=== PATIENT | male | born 1995 | race Caucasian/White ===

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

== ENCOUNTER 2017-02-07 16:40 | Emergency (ER) | payer MEDICAID ==
[2017-02-07 16:50] VITALS: O2SAT 99
--- NOTE | 2017-02-07 17:19 | C.PDOC ---
History Of Present Illness 21 yr old male presents to the ER s/p syncopal episode. Patient states he felt dizzy and passed out, when he woke up he was in a store. Patient reports he has been stressed out recently and has not eaten today. Patient reports of pain to his lower back, abdominal pain with some minimal tingling sensation to the feet. Also states hes having troubling taking a deeo breath due to the back pain. Denies vision changes, chest pain, nausea, vomiting or incontinence. Time Seen by Provider: 02/07/17 17:07 Chief Complaint (Nursing): Syncope History Per: Patient History/Exam Limitations: no limitations Onset/Duration Of Symptoms: Sudden Onset (TANNERY GUMMER) Past Medical History Reviewed: Historical Data, Nursing Documentation, Vital Signs Vital Signs: Last Vital Signs Temp 99 F 02/07/17 16:46 Pulse 73 02/07/17 17:19 Resp 16 02/07/17 17:19 BP 101/54 L 02/07/17 17:19 Pulse Ox 99 02/07/17 17:21 Family History: States: No Known Family Hx - Social History Hx Alcohol Use: No Hx Substance Use: No - Immunization History Hx Tetanus Toxoid Vaccination: No Hx Influenza Vaccination: No Hx Pneumococcal Vaccination: No Review Of Systems Except As Marked, All Systems Reviewed And Found Negative. Eyes: Negative for: Vision Change Cardiovascular: Negative for: Chest Pain Gastrointestinal: Positive for: Abdominal Pain. Negative for: Nausea, Vomiting Genitourinary: Negative for: Incontinence Musculoskeletal: Positive for: Back Pain Physical Exam - Physical Exam Appears: Non-toxic, No Acute Distress Skin: Warm, Dry, No Rash Head: Atraumatic, Normacephalic Oral Mucosa: Moist Chest: Symmetrical, No Tenderness Cardiovascular: Rhythm Regular, No Murmur Respiratory: Normal Breath Sounds, No Rales, No Rhonchi, No Stridor, No Wheezing Back: Normal Inspection, No CVA Tenderness Extremity: Normal ROM, No Tenderness, Capillary Refill (<2), No Swelling Neurological/Psych: Oriented x3, Normal Speech, Normal Motor ED Course And Treatment O2 Sat by Pulse Oximetry: 99 (RA) Pulse Ox Interpretation: Normal Disposition Counseled Patient/Family Regarding: Diagnosis, Need For Followup - Disposition Referrals: [facility] [Outside] Disposition: HOME/ ROUTINE Disposition Time: 18:44 Condition: STABLE Additional Instructions: Drink plenty fluids. Your EKG was normal. Follow up with your regular doctor. Prescriptions: Ibuprofen [Motrin] 600 mg PO TID #15 tab Instructions: Syncope (ED) Forms: [facility] (Qatari), General Discharge Instructions - POA Present On Arrival: None - Clinical Impression Clinical Impression: Near syncope - Scribe Statement The provider has reviewed the documentation as recorded by the Manjuibe Esperanza Koehler Provider Attestation: All medical record entries made by the Manjuibe were at my direction and personally dictated by me. I have reviewed the chart and agree that the record accurately reflects my personal performance of the history, physical exam, medical decision making, and the department course for this patient. I have also personally directed, reviewed, and agree with the discharge instructions and disposition.
[2017-02-07] MEDS ORDERED: Sodium Chloride 0.9% 1,000 ML IV ONE (17:32)
[2017-02-07] MEDS ORDERED: Sodium Chloride 0.9% 1,000 ML ONE (17:48)
[2017-02-07 18:02] VITALS: RESP 16
[2017-02-07 18:51] VITALS: BP 103/55; PULSE 76; TEMP 98.7
--- NOTE | 2017-02-08 08:09 | CARD ---
APPROVED REPORT EKG Measurement Heart [id number] [place] [id number] <Conclusion> Normal sinus rhythm Normal ECG
== END 2017-02-07 19:35 | disposition home or self-care (01) ==
LOC: C.ER 16:40
DX: R55 Syncope and collapse (principal)
CPT/HCPCS: 93005; 96361; 96374; 99285; J1885; J7040

== ENCOUNTER → 2017-02-13 18:15 | Emergency (ER) | payer MEDICAID ==
[~2017-02-13 18:15] MED LIST: Albuterol 0.083% Inhal Sol (2.5 mg/3 mL) UD ONE
== END | disposition left against medical advice (07) ==
LOC: C.ER 18:15
DX: M54.5 Low back pain (principal); Z02.9 Encounter for administrative examinations, unspecified

== ENCOUNTER 2017-03-30 18:55 | Emergency (ER) | payer MEDICAID ==
[2017-03-30 19:07] VITALS: BP 107/70; PULSE 57; RESP 20; TEMP 98.6; O2SAT 98
== END 2017-03-30 20:35 | disposition left against medical advice (07) ==
LOC: C.ER 18:55
DX: R10.31 Right lower quadrant pain (principal); Z02.9 Encounter for administrative examinations, unspecified

== ENCOUNTER 2017-04-04 10:30 | Emergency (ER) | payer MEDICAID ==
[2017-04-04 10:49] VITALS: BP 98/62; PULSE 68; RESP 18; TEMP 98.9; O2SAT 100
== END 2017-04-04 10:46 | disposition left against medical advice (07) ==
LOC: C.ER 10:30
DX: R10.31 Right lower quadrant pain (principal); Z02.9 Encounter for administrative examinations, unspecified

== ENCOUNTER 2017-04-17 00:27 | Emergency (ER) | payer MEDICAID ==
[2017-04-17 00:34] VITALS: BP 107/69; PULSE 71; RESP 20; TEMP 97.6; O2SAT 99
--- NOTE | 2017-04-17 00:47 | C.PDOC ---
History Of Present Illness Patient presents to the ED with complaints of shortness of breath and congestion. Patient feels there is a lot of dust at work. He is speaking in full sentences and tolerating PO. Patient Time Seen by Provider: 04/17/17 00:47 Chief Complaint (Nursing): Allergic Reaction Past Medical History Reviewed: Historical Data, Nursing Documentation, Vital Signs Vital Signs: Last Vital Signs Temp 97.6 F 04/17/17 00:32 Pulse 71 04/17/17 00:32 Resp 20 04/17/17 00:32 BP 107/69 04/17/17 00:32 Pulse Ox 99 04/17/17 03:40 Family History: States: No Known Family Hx - Social History Hx Alcohol Use: No Hx Substance Use: No - Immunization History Hx Tetanus Toxoid Vaccination: Yes Hx Influenza Vaccination: No Hx Pneumococcal Vaccination: No ED Course And Treatment O2 Sat by Pulse Oximetry: 99 Pulse Ox Interpretation: Normal Reevaluation Time: 03:38 Reassessment Condition: Improved Disposition Counseled Patient/Family Regarding: Studies Performed, Diagnosis, Need For Followup - Disposition Referrals: [facility] [Outside] [facility] [Outside] Disposition: HOME/ ROUTINE Disposition Time: 00:47 Condition: FAIR Prescriptions: Albuterol HFA [Ventolin HFA 90 mcg/actuation (8 g)] 2 puff IH [id number] #1 puff Prednisone [Deltasone] 20 mg PO DAILY #5 tablet Instructions: Reactive Airways Disease (DC) Forms: Work/School/Gym Excuse, [facility] (Lithuanian) - Clinical Impression Clinical Impression: Reactive airway disease - Scribe Statement The provider has reviewed the documentation as recorded by the Scribgabriel Adam All medical record entries made by the Scribe were at my direction and personally dictated by me. I have reviewed the chart and agree that the record accurately reflects my personal performance of the history, physical exam, medical decision making, and the department course for this patient. I have also personally directed, reviewed, and agree with the discharge instructions and disposition.
== END 2017-04-17 00:56 | disposition home or self-care (01) ==
LOC: C.ER 00:27
DX: J45.909 Unspecified asthma, uncomplicated (principal)

== ENCOUNTER 2017-05-23 12:08 | Emergency (ER) | payer MEDICAID ==
[2017-05-23 12:09] VITALS: BMI 24.1
[2017-05-23 12:14] VITALS: TEMP 98; O2SAT 100
[2017-05-23] MEDS ORDERED: Sodium Chloride 0.9% 1,000 ML IV ONE (12:34)
[2017-05-23] MEDS ORDERED: Sodium Chloride 0.9% 1,000 ML ONE (12:39)
[2017-05-23 13:21] LABS: BASO % 0.8 % (0.0-2.0); EOS # 0.2 K/uL (0.0-0.7); EOS % 3.9 % (0.0-4.0); HEMATOCRIT 45.6 % (35.0-51.0); LYMPH # 1.6 K/uL (1.0-4.3); LYMPH % 39.5 % (20.0-40.0); MEAN CELL VOLUME 78.8 fL (80.0-94.0); MEAN CORPUSCULAR HEMOGLOBIN 25.8 pg (27.0-31.0); MEAN CORPUSCULAR HGB CONC 32.8 g/dL (33.0-37.0); MONO # 0.3 K/uL (0.0-0.8); MONO % 7.7 % (0.0-10.0); NRBC % 0.2 % (0.0-2.0); RED CELL DISTRIBUTION WIDTH 13.4 % (11.5-14.5)
[2017-05-23 13:36] LABS: ALB/GLOB RATIO 1.5 (1.0-2.1); ALKALINE PHOSPHATASE 69 U/L (38-126); ALT/SGPT 136 U/L (21-72); AST/SGOT 51 U/L (17-59); BILIRUBIN,TOTAL 1.3 mg/dL (0.2-1.3); BLOOD UREA NITROGEN 15 mg/dL (9-20); CARBON DIOXIDE 25 mmol/L (22-30); CHLORIDE 100 mmol/L (98-107); GFR AFRICAN-AMERICAN > 60; GLUCOSE,RANDOM 80 mg/dL (75-110); POTASSIUM 3.8 mmol/L (3.6-5.2); SODIUM 136 mmol/L (132-148); TOTAL PROTEIN 7.8 g/dL (6.3-8.3)
[2017-05-23 13:46] LABS: RBC URINE < 1 /hpf (0-3); URINE BILIRUBIN NEGATIVE (NEGATIVE); URINE BLOOD NEGATIVE (NEGATIVE); URINE COLOR Yellow (YELLOW); URINE GLUCOSE (UA) NORMAL (Normal); URINE KETONE TRACE mg/dL (NEGATIVE); URINE LEUKOCYTE ESTERASE NEG Leu/uL (Negative); URINE PROTEIN NEGATIVE (NEGATIVE); URINE UROBILINOGEN NORMAL mg/dL (0.2-1.0); WBC URINE 1 /hpf (0-5)
--- NOTE | 2017-05-23 13:49 | C.PDOC ---
History Of Present Illness 22 y/o patient presents to the ED for evaluation after he had a syncopal episode which occurred earlier today. Patient states he was vomiting all night. Patient decided to go for a run and then "passed out." He denies headache, abdominal pain, weakness. Time Seen by Provider: 05/23/17 12:25 Chief Complaint (Nursing): Syncope History Per: Patient History/Exam Limitations: no limitations Onset/Duration Of Symptoms: Mins Current Symptoms Are (Timing): Still Present Associated Symptoms Preceding Syncopal Episode: No Predromal Symptoms (Sudden Onset) Additional History Per: Patient Past Medical History Reviewed: Historical Data, Nursing Documentation, Vital Signs Vital Signs: Last Vital Signs Temp 98.0 F 05/23/17 12:11 Pulse 72 05/23/17 13:58 Resp 18 05/23/17 13:58 BP 102/65 05/23/17 13:58 Pulse Ox 100 05/23/17 23:22 - Medical History PMH: No Chronic Diseases Denies: Chronic Kidney Disease Surgical History: No Surg Hx Family History: States: Unknown Family Hx - Social History Hx Alcohol Use: No Hx Substance Use: No - Immunization History Hx Tetanus Toxoid Vaccination: Yes Hx Influenza Vaccination: No Hx Pneumococcal Vaccination: No Review Of Systems Constitutional: Negative for: Weakness Gastrointestinal: Positive for: Vomiting. Negative for: Abdominal Pain Neurological: Positive for: Other (syncope ). Negative for: Headache Physical Exam - Physical Exam Appears: Non-toxic, No Acute Distress Skin: Normal Color, Warm, Dry Head: Atraumatic, Normacephalic Eye(s): bilateral: Normal Inspection Oral Mucosa: Moist Neck: Supple Chest: Symmetrical, No Deformity, No Tenderness Cardiovascular: Rhythm Regular, No Murmur Respiratory: Normal Breath Sounds, No Rales, No Rhonchi, No Wheezing Gastrointestinal/Abdominal: Soft, No Tenderness, No Guarding, No Rebound Extremity: Normal ROM, Capillary Refill (less than 2 seconds ) Neurological/Psych: Oriented x3, Normal Speech, Normal Cognition ED Course And Treatment - Laboratory Results Result Diagrams: 05/23/17 13:08 05/23/17 13:08 ECG: Interpreted By Me, Viewed By Me ECG Rhythm: Sinus Rhythm Rate From EC O2 Sat by Pulse Oximetry: 100 (on RA) Pulse Ox Interpretation: Normal Progress Note: EKG, bloodwork and labs ordered and reviewed. Danilo IVP, Dulcefran IVP and IVF administered. Patient chose to leave the ED AMA, stating he has to study for his midterms. 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 - Scribe Statement The provider has reviewed the documentation as recorded by the Scribe (Janette Turner) All medical record entries made by the Scribe were at my direction and personally dictated by me. I have reviewed the chart and agree that the record accurately reflects my personal performance of the history, physical exam, medical decision making, and the department course for this patient. I have also personally directed, reviewed, and agree with the discharge instructions and disposition.
[2017-05-23 14:00] VITALS: BP 102/65; PULSE 72; RESP 18
--- NOTE | 2017-05-24 19:12 | CARD ---
APPROVED REPORT EKG Measurement Heart [id number] ME [id number] <Conclusion> Normal sinus rhythm Normal ECG
== END 2017-05-23 14:00 | disposition left against medical advice (07) ==
LOC: C.ER 12:08
DX: R55 Syncope and collapse (principal)
CPT/HCPCS: 80053; 81001; 83690; 84484; 85025; 93005; 96361; 96374; 96375; 99285; J2405; J7040

== ENCOUNTER 2017-10-23 22:55 | Emergency (ER) | payer OTHER, MEDICAID ==
[2017-10-23 22:56] VITALS: BMI 24.1
[2017-10-23 23:08] VITALS: BP 100/62; PULSE 68; TEMP 98; O2SAT 98
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
[2017-10-24 00:08] VITALS: RESP 20
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
== END 2017-10-24 00:07 | disposition home or self-care (01) ==
LOC: C.ER 22:55
DX: M54.5 Low back pain (principal); M79.672 Pain in left foot

== ENCOUNTER 2018-07-23 15:44 | Emergency (ER) | payer MEDICAID, OTHER | END 2018-07-23 16:31 | disposition left against medical advice (07) | LOC: C.ER 15:44 ==